=== PATIENT | female | born 1945 ===

== ENCOUNTER 2017-07-03 13:43 | Inpatient (IN) ==
[2017-07-03] MEDS ORDERED: PIPERACILLIN/TAZOBACTAM 3,375 MG in SODIUM CHLORIDE 0.9% 100 ML IV SCH (14:30)
[2017-07-03] MEDS ORDERED: SODIUM CHLORIDE 0.9% 2,600 ML IV ONE (14:30)
[2017-07-03] MEDS ORDERED: PIPERACILLIN/TAZOBACTAM 3,375 MG VIAL IV ONE (14:39)
[2017-07-03] MEDS ORDERED: NOREPINEPHRINE 4 MG/4 ML VIAL IV ONE ×2 (14:42→15:56)
[2017-07-03 14:58] LABS: Albumin 2.4 G/DL (3.4-5.0); Bilirubin,Total 0.4 MG/DL (0.2-1.0); Calcium 7.9 MG/DL (8.5-10.1); Total Protein 6.1 G/DL (6.4-8.3)
[2017-07-03] MEDS ORDERED: INSULIN REGULAR DRIP 100 ML IV SCH (15:00)
[2017-07-03 15:03] LABS: Basophils # 0.1 10*3/uL (0.0-0.2); Basophils % 0.2 % (0.0-0.8); Hemoglobin 13.8 GM/DL (12.0-16.0); Immature Granulocytes % 1.5 %; Immature Granulocytes Absolute 0.53 #; Lymphocytes # 1.1 10*3/uL (1.4-4.0); Lymphocytes % 3.1 % (21.3-54.2); Mean Corpuscular HGB Conc 29.8 GM/DL (32-36); Mean Corpuscular Hemoglobin 30 PG (27-34); Mean Corpuscular Volume 99.6 FL (87-102); Mean Platelet Volume 14.4 FL (9.6-12.0); Monocytes # 0.7 10*3/uL (0.11-0.8); NRBC # 0.09 10*3/uL; Neutrophils % 93.2 % (38.7-73.9); Platelet Count 204 T/CUMM (130-400); Red Blood Count 4.65 MC/CUMM (3.8-5.5); Red Cell Distribution Width 17.9 % (9.3-17.3); White Blood Count 34.4 T/CUMM (4-12)
[2017-07-03] MEDS ORDERED: INSULIN REGULAR 100 UNIT/ML ONE (15:04)
[2017-07-03 15:09] LABS: Hematocrit 46.3 VOL% (35.7-47.0)
[2017-07-03 15:11] LABS: Burr Cells Slight; Lymphocytes 3 % (20-55); Platelet Estimate Adequate; Poikilocytosis Slight; Segmented Neutrophils 95 % (50-85); Total Cells Counted 100
[2017-07-03 15:23] LABS: ABG Base Excess -9.9 MMOL/L (-2.5-2.5); ABG HCO3 16.7 MMOL/L (20-26); ABG Oxygen Saturation 99.3 % (95-100); ABG PCO2 41.9 MM HG (35-48); ABG PH 7.229 (7.35-7.45); ABG TCO2 15.8 MMOL/L (23-27); Allen Test Positive; Pt O2 Delivery Device Ventilator
[2017-07-03] MEDS ORDERED: DEXTROSE 50% 25 GM/50 ML VIAL IV PRN (16:00)
[2017-07-03] MEDS ORDERED: SODIUM CHLORIDE 0.9% 1,000 ML IV SCH (16:00)
[2017-07-03] MEDS ORDERED: SODIUM PHOSPHATE INJ 21.5 MMOL in SODIUM CHLORIDE 0.9% 250 ML IV PRN (16:00)
[2017-07-03] MEDS ORDERED: MAGNESIUM SULF RIDER 2 GM in PREMIX 1 EACH IV PRN (16:00)
[2017-07-03] MEDS ORDERED: SODIUM BICARB INJ 100 MEQ in STERILE WATER INJ 400 ML IV PRN (16:00)
[2017-07-03] MEDS ORDERED: ONDANSETRON 4 MG/2 ML VIAL IV PRN (16:00)
[2017-07-03] MEDS ORDERED: MAGNESIUM SULF RIDER 4 GM in PREMIX 1 EACH IV PRN (16:00)
[2017-07-03] MEDS ORDERED: INSULIN REGULAR 100 UNIT/ML SUBCUT ONE (16:04)
[2017-07-03 16:35] LABS: ABG Base Excess -11.2 MMOL/L (-2.5-2.5); ABG HCO3 15.7 MMOL/L (20-26); ABG Oxygen Saturation 95.1 % (95-100); ABG PCO2 33.5 MM HG (35-48); ABG PH 7.261 (7.35-7.45); ABG PO2 91.8 MM HG (80-95); ABG TCO2 13.4 MMOL/L (23-27)
[2017-07-03] MEDS: NOREPINEPHRINE 8 MG in SODIUM CHLORIDE 0.9% 242 ML IV SCH ×2 (16:42→20:13)
[2017-07-03 16:45] LABS: Calcium 7.1 MG/DL (8.5-10.1); Osmolality,Calculated 393.3 MOS/KG (273-304); Potassium 4.4 MMOL/L (3.5-5.1)
[2017-07-03] MEDS ORDERED: INSULIN REGULAR 100 UNIT/ML IV ONE (17:06)
[2017-07-03] MEDS ORDERED: HEPARIN/NACL 0.9% 2 UNITS/ML 500 ML IV ONE (17:14)
[2017-07-03] MEDS: ENOXAPARIN 30 MG/0.3 ML SYRINGE SUBCUT SCH (17:43)
[2017-07-03] MEDS: PANTOPRAZOLE 40 MG VIAL IV SCH (17:43)
[2017-07-03] MEDS: INSULIN REGULAR DRIP 100 ML IV SCH (17:44)
[2017-07-03] MEDS: HEPARIN/NACL 0.9% 2 UNITS/ML 500 ML IV SCH (17:48)
[2017-07-03] MEDS: SODIUM CHLOR 0.45% KCL 20 MEQ 20 MEQ/1,000 ML BAG IV SCH ×2 (18:00→22:14)
[2017-07-03 18:03] LABS: Apearance,Urine CLOUDY (Clear); Bacteria,Urine Many /HPF (Few); Bilirubin,Urine Negative (Negative); Blood, Urine Moderate mg/dL (Negative); Glucose,Urine (UA) >=500 mg/dL (Negative); Hyaline Casts,Urine 132 /LPF (0-3); Ketones,Urine Negative (Negative); Mucus,Urine Moderate /LPF (Occasional); Nitrite,Urine Negative (Negative); Protein,Urine 30 MG/DL; RBC,Urine 8 /HPF (0-4); Squamous Epithelial Cell,Urine Occasional /HPF (0-10); Urine Color Amber (Yellow); Urine Specific Gravity 1.017 (1.001-1.035); Urine Urobilinogen < 2.0 EU/DL (0.2-1.0); WBC,Urine 374 /HPF (0-6)
[2017-07-03] MEDS ORDERED: SODIUM CHLORIDE 0.45% 1,000 ML IV SCH (20:00)
[2017-07-03 20:11] LABS: Calcium 6.7 MG/DL (8.5-10.1); Osmolality,Calculated 382.3 MOS/KG (273-304); Potassium 3.8 MMOL/L (3.5-5.1)
[2017-07-03 22:19] LABS: Albumin 2.1 G/DL (3.4-5.0); Calcium 6.7 MG/DL (8.5-10.1); Osmolality,Calculated 375.2 MOS/KG (273-304); Phosphorous 4.3 MG/DL (2.5-4.9); Potassium 3.8 MMOL/L (3.5-5.1)
[2017-07-03] MEDS ORDERED: VASOPRESSIN 100 UNITS in SODIUM CHLORIDE 0.9% 95 ML IV SCH (23:45)
[2017-07-03] MEDS: NOREPINEPHRINE 16 MG in SODIUM CHLORIDE 0.9% 234 ML IV SCH (23:54)
[2017-07-04 00:53] LABS: Calcium 6.7 MG/DL (8.5-10.1); Osmolality,Calculated 364.2 MOS/KG (273-304); Potassium 4.3 MMOL/L (3.5-5.1)
[2017-07-04] MEDS: SODIUM CHLOR 0.45% KCL 20 MEQ 20 MEQ/1,000 ML BAG IV SCH (02:15)
[2017-07-04] MEDS: INSULIN REGULAR DRIP 100 ML IV SCH ×2 (02:39→19:06)
[2017-07-04] MEDS: PIPERACILLIN/TAZOBACTAM 3,375 MG in SODIUM CHLORIDE 0.9% 100 ML IV SCH ×2 (04:21→16:18)
[2017-07-04 06:08] LABS: ABG Base Excess -12.9 MMOL/L (-2.5-2.5); ABG HCO3 14.7 MMOL/L (20-26); ABG Oxygen Saturation 96.9 % (95-100); ABG PCO2 22.5 MM HG (35-48); ABG PH 7.322 (7.35-7.45); ABG TCO2 10.1 MMOL/L (23-27)
[2017-07-04 06:12] LABS: Basophils # 0.1 10*3/uL (0.0-0.2); Basophils % 0.2 % (0.0-0.8); Hematocrit 45.4 VOL% (35.7-47.0); Hemoglobin 14.1 GM/DL (12.0-16.0); Immature Granulocytes Absolute 0.27 #; Lymphocytes # 2.4 10*3/uL (1.4-4.0); Lymphocytes % 9.4 % (21.3-54.2); Mean Corpuscular HGB Conc 31.1 GM/DL (32-36); Mean Corpuscular Hemoglobin 30 PG (27-34); Mean Corpuscular Volume 95.6 FL (87-102); Mean Platelet Volume 13.8 FL (9.6-12.0); Monocytes # 1.1 10*3/uL (0.11-0.8); Monocytes % 4.3 % (1.7-12.7); NRBC # 0.24 10*3/uL; Neutrophils % 85.1 % (38.7-73.9); Platelet Count 93 T/CUMM (130-400); Red Blood Count 4.75 MC/CUMM (3.8-5.5); Red Cell Distribution Width 16.4 % (9.3-17.3); White Blood Count 25.9 T/CUMM (4-12)
[2017-07-04 06:40] LABS: Calcium 6.5 MG/DL (8.5-10.1); Magnesium 2.4 MG/DL (1.8-2.4); Osmolality,Calculated 349.2 MOS/KG (273-304); Phosphorous 4.2 MG/DL (2.5-4.9); Potassium 3.6 MMOL/L (3.5-5.1)
[2017-07-04 06:42] LABS: Band Neutrophils 7 % (0-10); Lymphocytes 13 % (20-55); Macrocytosis 1+; Nucleated Red Blood Cells 1 (0-5); Platelet Estimate Decreased; Polychromasia Slight; Segmented Neutrophils 79 % (50-85); Total Cells Counted 100
[2017-07-04] MEDS ORDERED: VASOPRESSIN 100 UNITS in SODIUM CHLORIDE 0.9% 95 ML IV SCH (07:15)
[2017-07-04] MEDS: NOREPINEPHRINE 16 MG in SODIUM CHLORIDE 0.9% 234 ML IV SCH ×3 (08:00→22:47)
[2017-07-04 08:10] LABS: Calcium 6.5 MG/DL (8.5-10.1); Potassium 3.6 MMOL/L (3.5-5.1)
[2017-07-04] MEDS: VASOPRESSIN 100 UNITS in SODIUM CHLORIDE 0.9% 95 ML IV SCH ×5 (10:00→22:46)
[2017-07-04] MEDS: PANTOPRAZOLE 40 MG VIAL IV SCH (10:20)
[2017-07-04] MEDS: STERILE WATER IV SCH ×3 (11:12→19:07)
[2017-07-04] MEDS: POTASSIUM CHLORIDE IV SCH ×3 (11:12→19:07)
[2017-07-04] MEDS: SODIUM ACETATE IV SCH ×3 (11:12→19:07)
[2017-07-04 12:03] LABS: Calcium 6.5 MG/DL (8.5-10.1); Osmolality,Calculated 340.3 MOS/KG (273-304); Potassium 4.5 MMOL/L (3.5-5.1)
[2017-07-04] MEDS ORDERED: MORPHINE 2 MG/1 ML SYRINGE IV ONE (15:33)
[2017-07-04] MEDS: ENOXAPARIN 30 MG/0.3 ML SYRINGE SUBCUT SCH (16:00)
[2017-07-04 17:41] LABS: Basophils % 0.2 % (0.0-0.8); Hematocrit 38.5 VOL% (35.7-47.0); Hemoglobin 12.2 GM/DL (12.0-16.0); Immature Granulocytes % 1.9 %; Immature Granulocytes Absolute 0.46 #; Lymphocytes # 1.3 10*3/uL (1.4-4.0); Lymphocytes % 5.6 % (21.3-54.2); Mean Corpuscular HGB Conc 31.7 GM/DL (32-36); Mean Corpuscular Hemoglobin 30 PG (27-34); Mean Corpuscular Volume 93.7 FL (87-102); Mean Platelet Volume 14.2 FL (9.6-12.0); Monocytes # 0.8 10*3/uL (0.11-0.8); Monocytes % 3.4 % (1.7-12.7); NRBC # 0.17 10*3/uL; Neutrophils # 21.3 10*3/uL (1.4-7.4); Neutrophils % 88.9 % (38.7-73.9); Red Blood Count 4.11 MC/CUMM (3.8-5.5); Red Cell Distribution Width 16.4 % (9.3-17.3); White Blood Count 23.9 T/CUMM (4-12)
[2017-07-04 17:43] LABS: Platelet Count 54 T/CUMM (130-400)
[2017-07-04 18:00] LABS: Calcium 6.4 MG/DL (8.5-10.1); Magnesium 2.3 MG/DL (1.8-2.4); Osmolality,Calculated 339.4 MOS/KG (273-304); Potassium 3.9 MMOL/L (3.5-5.1)
[2017-07-04 18:20] LABS: Band Neutrophils 10 % (0-10); Lymphocytes 8 % (20-55); Nucleated Red Blood Cells 3 (0-5); Segmented Neutrophils 79 % (50-85); Total Cells Counted 100
[2017-07-04 18:21] LABS: Burr Cells Few; Platelet Estimate Decreased; Poikilocytosis Slight
[2017-07-04] MEDS: HEPARIN/NACL 0.9% 2 UNITS/ML 500 ML IV SCH (19:05)
[2017-07-05] MEDS: SODIUM ACETATE IV SCH ×3 (00:38→07:43)
[2017-07-05] MEDS: STERILE WATER IV SCH ×3 (00:38→07:43)
[2017-07-05] MEDS: POTASSIUM CHLORIDE IV SCH ×3 (00:38→07:43)
[2017-07-05] MEDS: NOREPINEPHRINE 16 MG in SODIUM CHLORIDE 0.9% 234 ML IV SCH ×3 (01:44→14:11)
[2017-07-05] MEDS: VASOPRESSIN 100 UNITS in SODIUM CHLORIDE 0.9% 95 ML IV SCH ×7 (02:15→20:32)
[2017-07-05 04:44] LABS: ABG Base Excess 3.6 MMOL/L (-2.5-2.5); ABG HCO3 27.6 MMOL/L (20-26); ABG Oxygen Saturation 98.6 % (95-100); ABG PCO2 23.7 MM HG (35-48); ABG PO2 95.1 MM HG (80-95); ABG TCO2 21.4 MMOL/L (23-27)
[2017-07-05 04:59] LABS: ABG PH 7.613 (7.35-7.45)
[2017-07-05] MEDS: PIPERACILLIN/TAZOBACTAM 3,375 MG in SODIUM CHLORIDE 0.9% 100 ML IV SCH ×3 (05:32→22:21)
[2017-07-05 05:52] LABS: Basophils % 0.1 % (0.0-0.8); Hematocrit 33.8 VOL% (35.7-47.0); Hemoglobin 11.2 GM/DL (12.0-16.0); Immature Granulocytes % 0.8 %; Immature Granulocytes Absolute 0.16 #; Lymphocytes # 1.6 10*3/uL (1.4-4.0); Lymphocytes % 8.1 % (21.3-54.2); Mean Corpuscular HGB Conc 33.1 GM/DL (32-36); Mean Corpuscular Hemoglobin 30 PG (27-34); Mean Corpuscular Volume 89.4 FL (87-102); Monocytes % 4.8 % (1.7-12.7); NRBC # 0.08 10*3/uL; Neutrophils # 17.1 10*3/uL (1.4-7.4); Neutrophils % 86.2 % (38.7-73.9); Platelet Count 46 T/CUMM (130-400); Red Blood Count 3.78 MC/CUMM (3.8-5.5); Red Cell Distribution Width 16.2 % (9.3-17.3); White Blood Count 19.8 T/CUMM (4-12)
[2017-07-05 06:14] LABS: Band Neutrophils 5 % (0-10); Giant Platelets Few; Hypochromasia 1+; Lymphocytes 9 % (20-55); Ovalocytes Slight; Platelet Estimate Decreased; Segmented Neutrophils 82 % (50-85); Total Cells Counted 100
[2017-07-05 06:33] LABS: Albumin 1.3 G/DL (3.4-5.0); Bilirubin,Total 0.8 MG/DL (0.2-1.0); Osmolality,Calculated 331.7 MOS/KG (273-304); Potassium 3.3 MMOL/L (3.5-5.1); Total Protein 4.3 G/DL (6.4-8.3)
[2017-07-05 07:38] LABS: ABG Base Excess 0.6 MMOL/L (-2.5-2.5); ABG HCO3 24.9 MMOL/L (20-26); ABG Oxygen Saturation 97.5 % (95-100); ABG PCO2 24.6 MM HG (35-48); ABG PH 7.554 (7.35-7.45); ABG PO2 85.1 MM HG (80-95); ABG TCO2 19.4 MMOL/L (23-27)
[2017-07-05] MEDS: POTASSIUM CHLORIDE RIDER 10 MEQ in PREMIX 1 EACH IV PRN (07:43)
[2017-07-05] MEDS: DEXTROSE 50% 25 GM/50 ML VIAL IV PRN ×2 (08:17→08:45)
[2017-07-05] MEDS: ALBUMIN 25% 25 GM in PREMIX 1 EACH IV SCH ×2 (08:49→16:36)
[2017-07-05] MEDS: PANTOPRAZOLE 40 MG VIAL IV SCH (08:52)
[2017-07-05] MEDS: DEXTROSE 5% NACL 0.22% 1,000 ML IV SCH ×2 (09:47→15:49)
[2017-07-05] MEDS ORDERED: DEXTROSE 50% 25 GM/50 ML VIAL IV PRN (11:05)
[2017-07-05] MEDS ORDERED: GLUCAGON 1 MG VIAL IM PRN (11:05)
[2017-07-05] MEDS ORDERED: INSULIN LISPRO 100 UNIT/ML SUBCUT ONE (11:35)
[2017-07-05] MEDS: INSULIN LISPRO 100 UNIT/ML SUBCUT SCH ×3 (12:16→21:30)
[2017-07-05] MEDS: SODIUM CHLOR 0.45% KCL 20 MEQ 20 MEQ/1,000 ML BAG IV SCH (12:54)
[2017-07-05] MEDS ORDERED: INSULIN LISPRO 100 UNIT/ML SUBCUT SCH (14:00)
[2017-07-05 14:21] LABS: Calcium 6.2 MG/DL (8.5-10.1); Osmolality,Calculated 339.3 MOS/KG (273-304); Potassium 2.6 MMOL/L (3.5-5.1)
[2017-07-05] MEDS: SODIUM CHLORIDE 23.4% CONC INJ 38.5 MEQ in STERILE WATER INJ 1,000 ML IV SCH (15:41)
[2017-07-05] MEDS: ENOXAPARIN 30 MG/0.3 ML SYRINGE SUBCUT SCH (15:59)
[2017-07-05] MEDS: HEPARIN/NACL 0.9% 2 UNITS/ML 500 ML IV SCH (17:52)
[2017-07-06] MEDS: SODIUM CHLORIDE 23.4% CONC INJ 38.5 MEQ in STERILE WATER INJ 1,000 ML IV SCH ×3 (00:52→13:25)
[2017-07-06] MEDS: DEXTROSE 5% NACL 0.22% 1,000 ML IV SCH ×4 (00:53→20:27)
[2017-07-06] MEDS: VASOPRESSIN 100 UNITS in SODIUM CHLORIDE 0.9% 95 ML IV SCH ×3 (00:54→08:09)
[2017-07-06] MEDS: INSULIN LISPRO 100 UNIT/ML SUBCUT SCH ×6 (01:16→20:04)
[2017-07-06] MEDS: ALBUMIN 25% 25 GM in PREMIX 1 EACH IV SCH ×3 (01:16→16:38)
[2017-07-06] MEDS: NOREPINEPHRINE 16 MG in SODIUM CHLORIDE 0.9% 234 ML IV SCH ×2 (04:23→05:02)
[2017-07-06] MEDS: PIPERACILLIN/TAZOBACTAM 3,375 MG in SODIUM CHLORIDE 0.9% 100 ML IV SCH (05:54)
[2017-07-06 06:10] LABS: ABG Base Excess 4.8 MMOL/L (-2.5-2.5); ABG HCO3 27.5 MMOL/L (20-26); ABG Oxygen Saturation 97.6 % (95-100); ABG PCO2 33.1 MM HG (35-48); ABG PH 7.538 (7.35-7.45); ABG PO2 101.7 MM HG (80-95); ABG TCO2 28.6 MMOL/L (23-27)
[2017-07-06] MEDS: PANTOPRAZOLE 40 MG VIAL IV SCH (08:08)
[2017-07-06 09:14] LABS: Basophils % 0.1 % (0.0-0.8); Hematocrit 24.7 VOL% (35.7-47.0); Immature Granulocytes % 0.7 %; Lymphocytes # 0.8 10*3/uL (1.4-4.0); Lymphocytes % 5.7 % (21.3-54.2); Mean Corpuscular HGB Conc 32.4 GM/DL (32-36); Mean Corpuscular Hemoglobin 30 PG (27-34); Mean Corpuscular Volume 92.9 FL (87-102); Mean Platelet Volume 14.3 FL (9.6-12.0); Monocytes # 0.3 10*3/uL (0.11-0.8); Monocytes % 2.3 % (1.7-12.7); NRBC # 0.02 10*3/uL; Neutrophils # 12.5 10*3/uL (1.4-7.4); Neutrophils % 91.2 % (38.7-73.9); Red Blood Count 2.66 MC/CUMM (3.8-5.5); Red Cell Distribution Width 16.3 % (9.3-17.3); White Blood Count 13.8 T/CUMM (4-12)
[2017-07-06 09:19] LABS: Platelet Count 19 T/CUMM (130-400)
[2017-07-06 09:41] LABS: Albumin 2.3 G/DL (3.4-5.0); Calcium 6.2 MG/DL (8.5-10.1); Osmolality,Calculated 298.3 MOS/KG (273-304); Phosphorous 1.4 MG/DL (2.5-4.9)
[2017-07-06 09:46] LABS: Band Neutrophils 2 % (0-10); Lymphocytes 8 % (20-55); Platelet Estimate Decreased; Segmented Neutrophils 87 % (50-85); Total Cells Counted 100
[2017-07-06 09:47] LABS: Hypochromasia 1+; Ovalocytes Slight
[2017-07-06] MEDS: POTASSIUM CHLORIDE RIDER 10 MEQ in PREMIX 1 EACH IV PRN ×2 (09:59→23:47)
[2017-07-06] MEDS: MEROPENEM 500 MG in SODIUM CHLORIDE 0.9% 50 ML IV SCH (13:24)
[2017-07-06] MEDS: FAMOTIDINE 20 MG/2 ML VIAL IV SCH (14:48)
[2017-07-06] MEDS: POTASSIUM PHOS/SOD PHOS POWDER 250 MG PACK PO SCH ×2 (14:49→21:09)
[2017-07-06] MEDS: POTASSIUM CHLORIDE RIDER 100 ML IV PRN (16:38)
[2017-07-06] MEDS ORDERED: POTASSIUM CHLORIDE 20 MEQ/15 ML UDCUP PER TUBE ONE (17:00)
[2017-07-07] MEDS: INSULIN LISPRO 100 UNIT/ML SUBCUT SCH ×6 (00:22→19:57)
[2017-07-07] MEDS: POTASSIUM CHLORIDE RIDER 20 MEQ in PREMIX 1 EACH IV PRN (00:24)
[2017-07-07] MEDS: POTASSIUM CHLORIDE RIDER 100 ML IV PRN ×2 (01:24→05:21)
[2017-07-07] MEDS: NOREPINEPHRINE 16 MG in SODIUM CHLORIDE 0.9% 234 ML IV SCH (01:25)
[2017-07-07] MEDS: SODIUM CHLORIDE 23.4% CONC INJ 38.5 MEQ in STERILE WATER INJ 1,000 ML IV SCH ×3 (01:32→13:59)
[2017-07-07] MEDS: ALBUMIN 25% 25 GM in PREMIX 1 EACH IV SCH ×3 (01:34→16:23)
[2017-07-07] MEDS: FAMOTIDINE 20 MG/2 ML VIAL IV SCH ×2 (01:59→15:24)
[2017-07-07] MEDS: MEROPENEM 500 MG in SODIUM CHLORIDE 0.9% 50 ML IV SCH (02:03)
[2017-07-07 04:18] LABS: ABG Base Excess -0.9 MMOL/L (-2.5-2.5); ABG HCO3 21.4 MMOL/L (20-26); ABG Oxygen Saturation 98.3 % (95-100); ABG PCO2 26.2 MM HG (35-48); ABG PO2 116.5 MM HG (80-95); ABG TCO2 22.2 MMOL/L (23-27)
[2017-07-07 04:51] LABS: Basophils % 0.1 % (0.0-0.8); Eosinophils # 0.1 10*3/uL (0.0-0.87); Eosinophils % 0.6 % (0.00-10.9); Immature Granulocytes % 1.1 %; Immature Granulocytes Absolute 0.11 #; Lymphocytes # 0.6 10*3/uL (1.4-4.0); Lymphocytes % 6.6 % (21.3-54.2); Mean Corpuscular Hemoglobin 30 PG (27-34); Mean Corpuscular Volume 91.2 FL (87-102); Mean Platelet Volume 15.1 FL (9.6-12.0); Monocytes # 0.2 10*3/uL (0.11-0.8); Monocytes % 2.5 % (1.7-12.7); Neutrophils # 8.6 10*3/uL (1.4-7.4); Neutrophils % 89.1 % (38.7-73.9); Red Blood Count 2.26 MC/CUMM (3.8-5.5); Red Cell Distribution Width 15.8 % (9.3-17.3); White Blood Count 9.7 T/CUMM (4-12)
[2017-07-07 04:52] LABS: Albumin 2.4 G/DL (3.4-5.0); Calcium 5.9 MG/DL (8.5-10.1); Osmolality,Calculated 282.4 MOS/KG (273-304); Phosphorous 0.6 MG/DL (2.5-4.9); Potassium 3.6 MMOL/L (3.5-5.1)
[2017-07-07 05:00] LABS: Hematocrit 20.6 VOL% (35.7-47.0); Hemoglobin 6.8 GM/DL (12.0-16.0); Platelet Count 12 T/CUMM (130-400)
[2017-07-07 05:15] LABS: Platelet Estimate Decreased
[2017-07-07] MEDS ORDERED: SODIUM CHLORIDE 0.9% 250 ML IV PRN (08:17)
[2017-07-07] MEDS: POTASSIUM PHOS/SOD PHOS POWDER 250 MG PACK PO SCH ×3 (09:32→21:13)
[2017-07-07] MEDS: MEROPENEM 1,000 MG in SODIUM CHLORIDE 0.9% 50 ML IV SCH ×2 (13:58→21:19)
[2017-07-08] MEDS: INSULIN LISPRO 100 UNIT/ML SUBCUT SCH ×6 (00:06→20:14)
[2017-07-08] MEDS: ALBUMIN 25% 25 GM in PREMIX 1 EACH IV SCH ×3 (01:31→17:21)
[2017-07-08] MEDS: FAMOTIDINE 20 MG/2 ML VIAL IV SCH ×2 (01:37→14:23)
[2017-07-08 04:58] LABS: ABG Base Excess -1.9 MMOL/L (-2.5-2.5); ABG HCO3 22.9 MMOL/L (20-26); ABG Oxygen Saturation 98.7 % (95-100); ABG PCO2 25.8 MM HG (35-48); ABG PH 7.501 (7.35-7.45); ABG TCO2 18.2 MMOL/L (23-27); Allen Test Positive; Pt O2 Delivery Device Ventilator
[2017-07-08 05:10] LABS: Basophils % 0.1 % (0.0-0.8); Eosinophils % 0.3 % (0.00-10.9); Hematocrit 29.8 VOL% (35.7-47.0); Hemoglobin 10.3 GM/DL (12.0-16.0); Immature Granulocytes % 2.1 %; Immature Granulocytes Absolute 0.18 #; Lymphocytes # 0.5 10*3/uL (1.4-4.0); Lymphocytes % 5.6 % (21.3-54.2); Mean Corpuscular HGB Conc 34.6 GM/DL (32-36); Mean Corpuscular Hemoglobin 30 PG (27-34); Mean Corpuscular Volume 86.9 FL (87-102); Monocytes # 0.2 10*3/uL (0.11-0.8); Monocytes % 2.2 % (1.7-12.7); NRBC # 0.03 10*3/uL; Neutrophils # 7.7 10*3/uL (1.4-7.4); Neutrophils % 89.7 % (38.7-73.9); Red Blood Count 3.43 MC/CUMM (3.8-5.5); Red Cell Distribution Width 15.4 % (9.3-17.3); White Blood Count 8.6 T/CUMM (4-12)
[2017-07-08] MEDS: MEROPENEM 1,000 MG in SODIUM CHLORIDE 0.9% 50 ML IV SCH ×3 (05:20→20:46)
[2017-07-08 05:21] LABS: INR 1.6; PT Patient Result 16.4 SECS
[2017-07-08 05:30] LABS: Partial Thromboplastin Time 47.4 SECS (0-40)
[2017-07-08 05:38] LABS: Albumin 2.9 G/DL (3.4-5.0); Calcium 6.5 MG/DL (8.5-10.1); Potassium 3.4 MMOL/L (3.5-5.1); Prealbumin 6.8 MG/DL (20-40); Total Protein 4.5 G/DL (6.4-8.3)
[2017-07-08] MEDS: POTASSIUM CHLORIDE RIDER 10 MEQ in PREMIX 1 EACH IV PRN (05:44)
[2017-07-08 05:54] LABS: Albumin 2.8 G/DL (3.4-5.0); Calcium 6.5 MG/DL (8.5-10.1); Osmolality,Calculated 287.3 MOS/KG (273-304); Phosphorous 1.1 MG/DL (2.5-4.9); Potassium 3.4 MMOL/L (3.5-5.1)
[2017-07-08 05:58] LABS: Platelet Count 15 T/CUMM (130-400)
[2017-07-08] MEDS: POTASSIUM CHLORIDE RIDER 20 MEQ in PREMIX 1 EACH IV PRN (06:20)
[2017-07-08] MEDS: POTASSIUM CHLORIDE RIDER 100 ML IV PRN (06:20)
[2017-07-08 06:55] LABS: Band Neutrophils 2 % (0-10); Hypochromasia 1+; Lymphocytes 6 % (20-55); Platelet Estimate Decreased; Segmented Neutrophils 89 % (50-85); Total Cells Counted 100
[2017-07-08 09:30] LABS: 25 Hydroxy Vitamin D Total 6.3 NG/ML
[2017-07-08 09:34] LABS: Parathyroid Hormone Intact 440.5 PG/ML (14-72)
[2017-07-08] MEDS: CALCITRIOL 0.25 MCG CAPSULE PO SCH (10:53)
[2017-07-08] MEDS: POTASSIUM PHOS/SOD PHOS POWDER 250 MG PACK PO SCH ×3 (10:54→20:45)
[2017-07-09] MEDS: INSULIN LISPRO 100 UNIT/ML SUBCUT SCH ×6 (00:29→20:16)
[2017-07-09] MEDS: ALBUMIN 25% 25 GM in PREMIX 1 EACH IV SCH ×3 (01:34→17:14)
[2017-07-09] MEDS: FAMOTIDINE 20 MG/2 ML VIAL IV SCH ×2 (01:44→14:59)
[2017-07-09 04:10] LABS: ABG Base Excess -1.1 MMOL/L (-2.5-2.5); ABG HCO3 23.5 MMOL/L (20-26); ABG Oxygen Saturation 99.3 % (95-100); ABG PCO2 28.4 MM HG (35-48); ABG PH 7.487 (7.35-7.45); ABG TCO2 19.7 MMOL/L (23-27); Allen Test Positive; Pt O2 Delivery Device Ventilator
[2017-07-09 04:26] LABS: Basophils % 0.2 % (0.0-0.8); Eosinophils # 0.1 10*3/uL (0.0-0.87); Eosinophils % 0.9 % (0.00-10.9); Hematocrit 26.5 VOL% (35.7-47.0); Hemoglobin 9.1 GM/DL (12.0-16.0); Immature Granulocytes % 1.4 %; Immature Granulocytes Absolute 0.09 #; Lymphocytes # 0.5 10*3/uL (1.4-4.0); Lymphocytes % 8.1 % (21.3-54.2); Mean Corpuscular HGB Conc 34.3 GM/DL (32-36); Mean Corpuscular Hemoglobin 30 PG (27-34); Mean Corpuscular Volume 86.9 FL (87-102); Monocytes # 0.2 10*3/uL (0.11-0.8); Monocytes % 3.5 % (1.7-12.7); NRBC # 0.02 10*3/uL; Neutrophils # 5.6 10*3/uL (1.4-7.4); Neutrophils % 85.9 % (38.7-73.9); Red Blood Count 3.05 MC/CUMM (3.8-5.5); Red Cell Distribution Width 15.7 % (9.3-17.3); White Blood Count 6.6 T/CUMM (4-12)
[2017-07-09 04:30] LABS: Platelet Count 22 T/CUMM (130-400)
[2017-07-09 04:51] LABS: Calcium 6.7 MG/DL (8.5-10.1); Osmolality,Calculated 294.8 MOS/KG (273-304); Phosphorous 1.5 MG/DL (2.5-4.9); Potassium 3.5 MMOL/L (3.5-5.1)
[2017-07-09 05:21] LABS: Band Neutrophils 1 % (0-10); Eosinophils 1 % (0-10); Lymphocytes 5 % (20-55); Segmented Neutrophils 90 % (50-85); Total Cells Counted 100
[2017-07-09 05:22] LABS: Hypochromasia 1+; Ovalocytes Slight; Platelet Estimate Decreased
[2017-07-09] MEDS: MEROPENEM 1,000 MG in SODIUM CHLORIDE 0.9% 50 ML IV SCH ×3 (05:41→21:06)
[2017-07-09] MEDS: POTASSIUM CHLORIDE RIDER 20 MEQ in PREMIX 1 EACH IV PRN (06:25)
[2017-07-09] MEDS: POTASSIUM CHLORIDE RIDER 10 MEQ in PREMIX 1 EACH IV PRN (06:53)
[2017-07-09] MEDS: CALCITRIOL 0.25 MCG CAPSULE PO SCH (08:50)
[2017-07-09] MEDS: POTASSIUM PHOS/SOD PHOS POWDER 250 MG PACK PO SCH ×3 (08:51→21:06)
[2017-07-09] MEDS ORDERED: CALCIUM GLUCONATE 2,000 MG in SODIUM CHLORIDE 0.9% 100 ML IV PRN (09:49)
[2017-07-09 20:01] LABS: HIT Interpretation Negative (Negative)
[2017-07-10] MEDS: INSULIN LISPRO 100 UNIT/ML SUBCUT SCH ×6 (00:22→20:50)
[2017-07-10] MEDS: ALBUMIN 25% 25 GM in PREMIX 1 EACH IV SCH ×3 (00:44→17:07)
[2017-07-10] MEDS: FAMOTIDINE 20 MG/2 ML VIAL IV SCH ×2 (02:25→14:01)
[2017-07-10 03:36] LABS: Allen Test Positive; Pt O2 Delivery Device Ventilator
[2017-07-10 03:37] LABS: ABG Base Excess -0.5 MMOL/L (-2.5-2.5); ABG HCO3 21.7 MMOL/L (20-26); ABG Oxygen Saturation 97.6 % (95-100); ABG PH 7.523 (7.35-7.45); ABG PO2 100.6 MM HG (80-95); ABG TCO2 22.5 MMOL/L (23-27)
[2017-07-10 04:04] LABS: Eosinophils # 0.1 10*3/uL (0.0-0.87); Eosinophils % 1.3 % (0.00-10.9); Hematocrit 25.2 VOL% (35.7-47.0); Hemoglobin 8.5 GM/DL (12.0-16.0); Immature Granulocytes % 2.8 %; Immature Granulocytes Absolute 0.17 #; Lymphocytes # 0.5 10*3/uL (1.4-4.0); Lymphocytes % 8.6 % (21.3-54.2); Mean Corpuscular HGB Conc 33.7 GM/DL (32-36); Mean Corpuscular Hemoglobin 30 PG (27-34); Mean Corpuscular Volume 87.8 FL (87-102); Monocytes # 0.2 10*3/uL (0.11-0.8); Monocytes % 3.6 % (1.7-12.7); NRBC # 0.03 10*3/uL; Neutrophils # 5.2 10*3/uL (1.4-7.4); Neutrophils % 83.7 % (38.7-73.9); Red Blood Count 2.87 MC/CUMM (3.8-5.5); Red Cell Distribution Width 15.9 % (9.3-17.3); White Blood Count 6.2 T/CUMM (4-12)
[2017-07-10 04:15] LABS: Platelet Count 41 T/CUMM (130-400)
[2017-07-10] MEDS: MEROPENEM 1,000 MG in SODIUM CHLORIDE 0.9% 50 ML IV SCH ×3 (05:13→20:48)
[2017-07-10 05:14] LABS: Calcium 7.2 MG/DL (8.5-10.1); Osmolality,Calculated 299.6 MOS/KG (273-304); Potassium 3.9 MMOL/L (3.5-5.1)
[2017-07-10] MEDS: POTASSIUM CHLORIDE RIDER 20 MEQ in PREMIX 1 EACH IV PRN (05:47)
[2017-07-10 06:00] LABS: Band Neutrophils 2 % (0-10); Hypochromasia 2+; Lymphocytes 6 % (20-55); Nucleated Red Blood Cells 2 (0-5); Platelet Estimate Decreased; Segmented Neutrophils 90 % (50-85); Total Cells Counted 100
[2017-07-10] MEDS ORDERED: PROPOFOL 1,000 MG/100 ML BOTTLE IV ONE (09:25)
[2017-07-10] MEDS: PROPOFOL 1,000 MG/100 ML BOTTLE IV SCH ×2 (10:07→17:12)
[2017-07-10] MEDS: CALCITRIOL 0.25 MCG CAPSULE PO SCH (10:39)
[2017-07-10] MEDS: POTASSIUM PHOS/SOD PHOS POWDER 250 MG PACK PO SCH ×3 (10:39→20:48)
[2017-07-10] MEDS: SALIVA SUBSTITUTE SPRAY 60 ML CAN SWISH/SWAL PRN ×2 (14:06→16:14)
[2017-07-11] MEDS: INSULIN LISPRO 100 UNIT/ML SUBCUT SCH ×6 (00:16→21:58)
[2017-07-11] MEDS: FAMOTIDINE 20 MG/2 ML VIAL IV SCH ×2 (01:17→13:02)
[2017-07-11] MEDS: ALBUMIN 25% 25 GM in PREMIX 1 EACH IV SCH ×3 (01:17→16:29)
[2017-07-11 04:17] LABS: ABG Base Excess 0.2 MMOL/L (-2.5-2.5); ABG HCO3 24.6 MMOL/L (20-26); ABG Oxygen Saturation 98.2 % (95-100); ABG PCO2 32.9 MM HG (35-48); ABG PH 7.465 (7.35-7.45); ABG PO2 90.4 MM HG (80-95); ABG TCO2 22.2 MMOL/L (23-27); Allen Test Positive; Pt O2 Delivery Device Ventilator
[2017-07-11 04:46] LABS: Basophils % 0.2 % (0.0-0.8); Eosinophils # 0.1 10*3/uL (0.0-0.87); Eosinophils % 1.6 % (0.00-10.9); Hematocrit 22.3 VOL% (35.7-47.0); Hemoglobin 7.4 GM/DL (12.0-16.0); Immature Granulocytes % 2.6 %; Immature Granulocytes Absolute 0.16 #; Lymphocytes # 0.6 10*3/uL (1.4-4.0); Lymphocytes % 9.7 % (21.3-54.2); Mean Corpuscular HGB Conc 33.2 GM/DL (32-36); Mean Corpuscular Hemoglobin 30 PG (27-34); Mean Corpuscular Volume 89.2 FL (87-102); Mean Platelet Volume 13.9 FL (9.6-12.0); Monocytes # 0.2 10*3/uL (0.11-0.8); Monocytes % 3.1 % (1.7-12.7); Neutrophils # 5.1 10*3/uL (1.4-7.4); Neutrophils % 82.8 % (38.7-73.9); Red Cell Distribution Width 16.2 % (9.3-17.3); White Blood Count 6.1 T/CUMM (4-12)
[2017-07-11 04:54] LABS: Platelet Count 56 T/CUMM (130-400)
[2017-07-11 05:06] LABS: Calcium 7.4 MG/DL (8.5-10.1); Osmolality,Calculated 304.6 MOS/KG (273-304); Potassium 4.2 MMOL/L (3.5-5.1)
[2017-07-11] MEDS: MEROPENEM 1,000 MG in SODIUM CHLORIDE 0.9% 50 ML IV SCH ×3 (05:11→20:38)
[2017-07-11 05:29] LABS: Band Neutrophils 5 % (0-10); Giant Platelets Few; Hypochromasia 1+; Lymphocytes 10 % (20-55); Ovalocytes Slight; Platelet Estimate Decreased; Segmented Neutrophils 83 % (50-85); Total Cells Counted 100
[2017-07-11] MEDS: PROPOFOL 1,000 MG/100 ML BOTTLE IV SCH ×2 (05:35→16:30)
[2017-07-11 05:53] LABS: Magnesium 2.1 MG/DL (1.8-2.4); Phosphorous 2.4 MG/DL (2.5-4.9); Prealbumin 7.4 MG/DL (20-40)
[2017-07-11] MEDS: CALCITRIOL 0.25 MCG CAPSULE PO SCH (11:21)
[2017-07-11] MEDS: POTASSIUM PHOS/SOD PHOS POWDER 250 MG PACK PO SCH ×3 (11:21→20:38)
[2017-07-11 14:49] LABS: % Iron Saturation 17.9 % (18-50); Ferritin 1090.7 ng/ml (8-252)
[2017-07-11 14:55] LABS: Folate 14.9 NG/ML (5.4-24.0)
[2017-07-11] MEDS: DEXAMETHASONE 4 MG/1 ML VIAL IV SCH (15:47)
[2017-07-12] MEDS: INSULIN LISPRO 100 UNIT/ML SUBCUT SCH ×6 (00:51→21:09)
[2017-07-12] MEDS: DEXAMETHASONE 4 MG/1 ML VIAL IV SCH ×3 (00:52→15:56)
[2017-07-12] MEDS: ALBUMIN 25% 25 GM in PREMIX 1 EACH IV SCH ×3 (00:52→16:45)
[2017-07-12] MEDS: FAMOTIDINE 20 MG/2 ML VIAL IV SCH ×2 (03:24→15:55)
[2017-07-12 03:28] LABS: Allen Test Positive; Pt O2 Delivery Device Ventilator
[2017-07-12 03:29] LABS: ABG Base Excess 0.9 MMOL/L (-2.5-2.5); ABG HCO3 25.3 MMOL/L (20-26); ABG Oxygen Saturation 98.3 % (95-100); ABG PCO2 31.8 MM HG (35-48); ABG PH 7.487 (7.35-7.45); ABG TCO2 22.6 MMOL/L (23-27)
[2017-07-12] MEDS: MEROPENEM 1,000 MG in SODIUM CHLORIDE 0.9% 50 ML IV SCH ×3 (05:30→21:09)
[2017-07-12] MEDS: CALCITRIOL 0.25 MCG CAPSULE PO SCH (08:14)
[2017-07-12] MEDS: POTASSIUM PHOS/SOD PHOS POWDER 250 MG PACK PO SCH ×3 (08:15→21:09)
[2017-07-12 08:48] LABS: Osmolality,Calculated 309.6 MOS/KG (273-304); Potassium 4.5 MMOL/L (3.5-5.1)
[2017-07-12 08:53] LABS: Hematocrit 23.3 VOL% (35.7-47.0); Hemoglobin 7.7 GM/DL (12.0-16.0); Immature Granulocytes Absolute 0.14 #; Lymphocytes # 0.4 10*3/uL (1.4-4.0); Lymphocytes % 5.1 % (21.3-54.2); Mean Corpuscular Hemoglobin 30 PG (27-34); Mean Corpuscular Volume 90.3 FL (87-102); Monocytes # 0.1 10*3/uL (0.11-0.8); Monocytes % 1.4 % (1.7-12.7); Neutrophils # 6.4 10*3/uL (1.4-7.4); Neutrophils % 91.5 % (38.7-73.9); Platelet Count 88 T/CUMM (130-400); Red Blood Count 2.58 MC/CUMM (3.8-5.5); Red Cell Distribution Width 15.9 % (9.3-17.3)
[2017-07-12 09:13] LABS: Band Neutrophils 1 % (0-10); Lymphocytes 3 % (20-55); Platelet Estimate Decreased; Segmented Neutrophils 95 % (50-85); Total Cells Counted 100
[2017-07-12 09:14] LABS: Giant Platelets Few; Hypochromasia 1+
[2017-07-12] MEDS ORDERED: SODIUM CHLORIDE 0.9% 250 ML IV PRN (09:22)
[2017-07-12] MEDS: PROPOFOL 1,000 MG/100 ML BOTTLE IV SCH ×2 (12:34→21:52)
[2017-07-12 16:59] LABS: Hematocrit 30.3 VOL% (35.7-47.0)
[2017-07-12 17:00] LABS: Hemoglobin 10.1 GM/DL (12.0-16.0)
[2017-07-13] MEDS: ALBUMIN 25% 25 GM in PREMIX 1 EACH IV SCH ×2 (00:59→09:10)
[2017-07-13] MEDS: DEXAMETHASONE 4 MG/1 ML VIAL IV SCH ×3 (00:59→14:42)
[2017-07-13] MEDS: INSULIN LISPRO 100 UNIT/ML SUBCUT SCH ×6 (00:59→20:38)
[2017-07-13] MEDS: FAMOTIDINE 20 MG/2 ML VIAL IV SCH ×2 (04:01→14:42)
[2017-07-13 04:18] LABS: ABG Base Excess 1.2 MMOL/L (-2.5-2.5); ABG HCO3 23.7 MMOL/L (20-26); ABG PCO2 30.5 MM HG (35-48); ABG PH 7.509 (7.35-7.45); ABG PO2 70.9 MM HG (80-95); ABG TCO2 24.7 MMOL/L (23-27)
[2017-07-13 04:19] LABS: Allen Test Positive; Pt O2 Delivery Device Ventilator
[2017-07-13] MEDS: MEROPENEM 1,000 MG in SODIUM CHLORIDE 0.9% 50 ML IV SCH ×3 (06:00→20:38)
[2017-07-13 06:09] LABS: Hematocrit 29.8 VOL% (35.7-47.0); Hemoglobin 9.9 GM/DL (12.0-16.0); Immature Granulocytes % 1.6 %; Immature Granulocytes Absolute 0.11 #; Lymphocytes # 0.5 10*3/uL (1.4-4.0); Mean Corpuscular HGB Conc 33.2 GM/DL (32-36); Mean Corpuscular Hemoglobin 29 PG (27-34); Mean Corpuscular Volume 87.4 FL (87-102); Mean Platelet Volume 13.7 FL (9.6-12.0); Monocytes # 0.2 10*3/uL (0.11-0.8); Monocytes % 2.8 % (1.7-12.7); Neutrophils # 6.1 10*3/uL (1.4-7.4); Neutrophils % 88.6 % (38.7-73.9); Platelet Count 100 T/CUMM (130-400); Red Blood Count 3.41 MC/CUMM (3.8-5.5); Red Cell Distribution Width 15.9 % (9.3-17.3); White Blood Count 6.9 T/CUMM (4-12)
[2017-07-13 06:30] LABS: Hypochromasia 1+; Macrocytosis 1+; Polychromasia Slight
[2017-07-13 06:33] LABS: Calcium 8.5 MG/DL (8.5-10.1); Osmolality,Calculated 316.1 MOS/KG (273-304); Potassium 4.3 MMOL/L (3.5-5.1)
[2017-07-13] MEDS: PROPOFOL 1,000 MG/100 ML BOTTLE IV SCH ×2 (07:15→15:34)
[2017-07-13] MEDS: POTASSIUM PHOS/SOD PHOS POWDER 250 MG PACK PO SCH ×3 (09:06→20:38)
[2017-07-13] MEDS: CALCITRIOL 0.25 MCG CAPSULE PO SCH (09:06)
[2017-07-13 11:13] LABS: INR 1.2; PT Patient Result 12.9 SECS
[2017-07-13] MEDS: FUROSEMIDE 20 MG/2 ML VIAL IV SCH ×2 (11:17→20:37)
[2017-07-13] MEDS: SALIVA SUBSTITUTE SPRAY 60 ML CAN SWISH/SWAL PRN (15:58)
[2017-07-14] MEDS: INSULIN LISPRO 100 UNIT/ML SUBCUT SCH ×6 (00:32→20:57)
[2017-07-14] MEDS: DEXAMETHASONE 4 MG/1 ML VIAL IV SCH ×3 (00:32→16:45)
[2017-07-14] MEDS: FUROSEMIDE 20 MG/2 ML VIAL IV SCH ×3 (02:45→18:41)
[2017-07-14] MEDS: FAMOTIDINE 20 MG/2 ML VIAL IV SCH ×2 (02:45→16:47)
[2017-07-14] MEDS: MEROPENEM 1,000 MG in SODIUM CHLORIDE 0.9% 50 ML IV SCH ×3 (04:02→20:58)
[2017-07-14] MEDS: PROPOFOL 1,000 MG/100 ML BOTTLE IV SCH ×2 (04:03→16:43)
[2017-07-14 04:29] LABS: ABG Base Excess 2.1 MMOL/L (-2.5-2.5); ABG HCO3 26.2 MMOL/L (20-26); ABG Oxygen Saturation 97.4 % (95-100); ABG PCO2 35.2 MM HG (35-48); ABG PH 7.468 (7.35-7.45); ABG PO2 86.2 MM HG (80-95); ABG TCO2 22.8 MMOL/L (23-27); Allen Test Positive; Pt O2 Delivery Device Ventilator
[2017-07-14 04:45] LABS: Basophils % 0.1 % (0.0-0.8); Hematocrit 32.3 VOL% (35.7-47.0); Hemoglobin 10.7 GM/DL (12.0-16.0); Immature Granulocytes % 1.2 %; Immature Granulocytes Absolute 0.12 #; Lymphocytes # 0.7 10*3/uL (1.4-4.0); Lymphocytes % 6.9 % (21.3-54.2); Mean Corpuscular HGB Conc 33.1 GM/DL (32-36); Mean Corpuscular Hemoglobin 29 PG (27-34); Mean Corpuscular Volume 87.3 FL (87-102); Mean Platelet Volume 13.7 FL (9.6-12.0); Monocytes # 0.3 10*3/uL (0.11-0.8); Monocytes % 3.4 % (1.7-12.7); Neutrophils # 8.7 10*3/uL (1.4-7.4); Neutrophils % 88.4 % (38.7-73.9); Platelet Count 120 T/CUMM (130-400); Red Cell Distribution Width 15.6 % (9.3-17.3); White Blood Count 9.8 T/CUMM (4-12)
[2017-07-14 05:02] LABS: INR 1.2
[2017-07-14 05:16] LABS: Band Neutrophils 1 % (0-10); Hypochromasia Slight; Lymphocytes 7 % (20-55); Platelet Estimate Decreased; Segmented Neutrophils 89 % (50-85); Total Cells Counted 100
[2017-07-14 05:33] LABS: Phosphorous 4.3 MG/DL (2.5-4.9); Prealbumin 13.5 MG/DL (20-40)
[2017-07-14 05:36] LABS: Calcium 8.3 MG/DL (8.5-10.1); Magnesium 2.2 MG/DL (1.8-2.4); Osmolality,Calculated 321.3 MOS/KG (273-304); Potassium 4.1 MMOL/L (3.5-5.1)
[2017-07-14] MEDS: POTASSIUM PHOS/SOD PHOS POWDER 250 MG PACK PO SCH ×3 (09:37→21:01)
[2017-07-14] MEDS: CALCITRIOL 0.25 MCG CAPSULE PO SCH (09:37)
[2017-07-14] MEDS: SALIVA SUBSTITUTE SPRAY 60 ML CAN SWISH/SWAL PRN (21:04)
[2017-07-15] MEDS: DEXAMETHASONE 4 MG/1 ML VIAL IV SCH ×4 (00:02→22:44)
[2017-07-15] MEDS: INSULIN LISPRO 100 UNIT/ML SUBCUT SCH ×6 (00:04→20:58)
[2017-07-15 03:25] LABS: ABG Base Excess 5.5 MMOL/L (-2.5-2.5); ABG HCO3 29.3 MMOL/L (20-26); ABG Oxygen Saturation 98.2 % (95-100); ABG PH 7.483 (7.35-7.45); ABG PO2 99.6 MM HG (80-95); ABG TCO2 25.7 MMOL/L (23-27); Allen Test Positive; Pt O2 Delivery Device Ventilator
[2017-07-15] MEDS: FAMOTIDINE 20 MG/2 ML VIAL IV SCH ×2 (04:13→15:26)
[2017-07-15] MEDS: FUROSEMIDE 20 MG/2 ML VIAL IV SCH ×3 (04:15→22:39)
[2017-07-15 05:04] LABS: Magnesium 2.4 MG/DL (1.8-2.4); Osmolality,Calculated 309.6 MOS/KG (273-304); Potassium 4.3 MMOL/L (3.5-5.1)
[2017-07-15 05:23] LABS: INR 1.2; PT Patient Result 12.7 SECS
[2017-07-15 05:36] LABS: Basophils % 0.1 % (0.0-0.8); Hematocrit 35.5 VOL% (35.7-47.0); Hemoglobin 11.7 GM/DL (12.0-16.0); Immature Granulocytes % 1.3 %; Immature Granulocytes Absolute 0.14 #; Lymphocytes # 0.7 10*3/uL (1.4-4.0); Lymphocytes % 6.4 % (21.3-54.2); Mean Corpuscular Hemoglobin 29 PG (27-34); Mean Corpuscular Volume 87.4 FL (87-102); Mean Platelet Volume 13.9 FL (9.6-12.0); Monocytes # 0.3 10*3/uL (0.11-0.8); Monocytes % 2.5 % (1.7-12.7); Neutrophils # 9.9 10*3/uL (1.4-7.4); Neutrophils % 89.7 % (38.7-73.9); Platelet Count 152 T/CUMM (130-400); Red Blood Count 4.06 MC/CUMM (3.8-5.5); Red Cell Distribution Width 14.9 % (9.3-17.3)
[2017-07-15 06:18] LABS: Hypochromasia 1+; Macrocytosis 1+; Polychromasia Slight
[2017-07-15] MEDS: MEROPENEM 1,000 MG in SODIUM CHLORIDE 0.9% 50 ML IV SCH ×3 (06:28→20:58)
[2017-07-15] MEDS: PROPOFOL 1,000 MG/100 ML BOTTLE IV SCH (09:34)
[2017-07-15] MEDS: FLUCONAZOLE INJ 100 MG in IV BAG 1 EACH IV SCH (12:34)
[2017-07-15] MEDS ORDERED: LIDOCAINE 1%/EPI INJ 20 ML VIAL ONE (14:09)
[2017-07-15] MEDS ORDERED: MIDAZOLAM 2 MG/2 ML VIAL ONE (15:03)
[2017-07-15] MEDS ORDERED: SEVOFLURANE 1 UNIT/15 MINUTE INH ONE (15:03)
[2017-07-15] MEDS ORDERED: ROCURONIUM 100 MG/10 ML VIAL IV ONE (15:03)
[2017-07-15] MEDS ORDERED: PROPOFOL 200 MG/20 ML VIAL IV ONE (15:03)
[2017-07-15] MEDS: CALCITRIOL 0.25 MCG CAPSULE PO SCH (15:23)
[2017-07-15] MEDS: POTASSIUM PHOS/SOD PHOS POWDER 250 MG PACK PO SCH ×3 (15:26→20:59)
[2017-07-15] MEDS: SALIVA SUBSTITUTE SPRAY 60 ML CAN SWISH/SWAL PRN (17:26)
[2017-07-15] MEDS ORDERED: MORPHINE 2 MG/1 ML SYRINGE IV PRN (18:00)
[2017-07-16] MEDS: INSULIN LISPRO 100 UNIT/ML SUBCUT SCH ×7 (00:27→23:32)
[2017-07-16] MEDS: FAMOTIDINE 20 MG/2 ML VIAL IV SCH ×2 (02:25→14:10)
[2017-07-16 03:10] LABS: ABG Base Excess 5.6 MMOL/L (-2.5-2.5); ABG HCO3 28.8 MMOL/L (20-26); ABG Oxygen Saturation 97.7 % (95-100); ABG PH 7.509 (7.35-7.45); ABG PO2 105.7 MM HG (80-95); ABG TCO2 29.9 MMOL/L (23-27); Allen Test Positive; Pt O2 Delivery Device Ventilator
[2017-07-16] MEDS: MEROPENEM 1,000 MG in SODIUM CHLORIDE 0.9% 50 ML IV SCH ×3 (04:44→20:30)
[2017-07-16] MEDS: DEXAMETHASONE 4 MG/1 ML VIAL IV SCH ×3 (06:36→23:10)
[2017-07-16] MEDS: CALCITRIOL 0.25 MCG CAPSULE PO SCH (09:05)
[2017-07-16] MEDS: POTASSIUM PHOS/SOD PHOS POWDER 250 MG PACK PO SCH ×3 (09:05→20:29)
[2017-07-16] MEDS: FUROSEMIDE 20 MG/2 ML VIAL IV SCH ×2 (11:19→23:14)
[2017-07-16] MEDS: FLUCONAZOLE INJ 100 MG in IV BAG 1 EACH IV SCH (11:26)
[2017-07-16] MEDS: PROPOFOL 1,000 MG/100 ML BOTTLE IV SCH (14:17)
[2017-07-16] MEDS: SALIVA SUBSTITUTE SPRAY 60 ML CAN SWISH/SWAL PRN (17:17)
[2017-07-17] MEDS: FAMOTIDINE 20 MG/2 ML VIAL IV SCH ×2 (03:09→14:30)
[2017-07-17] MEDS: INSULIN LISPRO 100 UNIT/ML SUBCUT SCH ×5 (03:43→20:00)
[2017-07-17 04:47] LABS: Basophils % 0.1 % (0.0-0.8); Hematocrit 36.8 VOL% (35.7-47.0); Immature Granulocytes % 1.4 %; Immature Granulocytes Absolute 0.19 #; Lymphocytes # 0.6 10*3/uL (1.4-4.0); Lymphocytes % 4.5 % (21.3-54.2); Mean Corpuscular HGB Conc 32.6 GM/DL (32-36); Mean Corpuscular Hemoglobin 29 PG (27-34); Mean Corpuscular Volume 88.2 FL (87-102); Mean Platelet Volume 12.9 FL (9.6-12.0); Monocytes # 0.4 10*3/uL (0.11-0.8); Monocytes % 2.9 % (1.7-12.7); Neutrophils % 91.1 % (38.7-73.9); Platelet Count 208 T/CUMM (130-400); Red Blood Count 4.17 MC/CUMM (3.8-5.5); Red Cell Distribution Width 14.7 % (9.3-17.3); White Blood Count 13.2 T/CUMM (4-12)
[2017-07-17 04:48] LABS: ABG Base Excess 7.8 MMOL/L (-2.5-2.5); ABG HCO3 31.5 MMOL/L (20-26); ABG Oxygen Saturation 97.3 % (95-100); ABG PH 7.489 (7.35-7.45); ABG PO2 89.3 MM HG (80-95); ABG TCO2 28.2 MMOL/L (23-27); Allen Test Positive; Pt O2 Delivery Device Ventilator
[2017-07-17 05:08] LABS: Calcium 8.1 MG/DL (8.5-10.1); Osmolality,Calculated 306.8 MOS/KG (273-304); Potassium 4.4 MMOL/L (3.5-5.1)
[2017-07-17 05:39] LABS: Lymphocytes 6 % (20-55); Segmented Neutrophils 93 % (50-85)
[2017-07-17 05:40] LABS: Platelet Estimate Normal; Total Cells Counted 100
[2017-07-17] MEDS: MEROPENEM 1,000 MG in SODIUM CHLORIDE 0.9% 50 ML IV SCH ×3 (05:46→20:02)
[2017-07-17] MEDS: DEXAMETHASONE 4 MG/1 ML VIAL IV SCH ×3 (06:04→22:19)
[2017-07-17] MEDS: CALCITRIOL 0.25 MCG CAPSULE PO SCH (08:04)
[2017-07-17] MEDS: POTASSIUM PHOS/SOD PHOS POWDER 250 MG PACK PO SCH ×3 (08:05→20:02)
[2017-07-17] MEDS: PROPOFOL 1,000 MG/100 ML BOTTLE IV SCH (09:46)
[2017-07-17] MEDS: FUROSEMIDE 20 MG/2 ML VIAL IV SCH ×2 (10:07→22:15)
[2017-07-17] MEDS: FLUCONAZOLE INJ 100 MG in IV BAG 1 EACH IV SCH (11:32)
[2017-07-17] MEDS: SALIVA SUBSTITUTE SPRAY 60 ML CAN SWISH/SWAL PRN (16:35)
[2017-07-18] MEDS: INSULIN LISPRO 100 UNIT/ML SUBCUT SCH ×5 (00:44→15:54)
[2017-07-18] MEDS: FAMOTIDINE 20 MG/2 ML VIAL IV SCH ×2 (02:00→13:47)
[2017-07-18 04:19] LABS: ABG Base Excess 8.7 MMOL/L (-2.5-2.5); ABG HCO3 32.5 MMOL/L (20-26); ABG Oxygen Saturation 98.6 % (95-100); ABG PCO2 44.4 MM HG (35-48); ABG PH 7.484 (7.35-7.45); ABG TCO2 29.4 MMOL/L (23-27); Allen Test Positive; Pt O2 Delivery Device Ventilator
[2017-07-18] MEDS: MEROPENEM 1,000 MG in SODIUM CHLORIDE 0.9% 50 ML IV SCH ×2 (04:59→12:43)
[2017-07-18 05:00] LABS: Basophils % 0.1 % (0.0-0.8); Hematocrit 36.7 VOL% (35.7-47.0); Immature Granulocytes % 1.6 %; Immature Granulocytes Absolute 0.22 #; Lymphocytes # 0.6 10*3/uL (1.4-4.0); Lymphocytes % 4.1 % (21.3-54.2); Mean Corpuscular HGB Conc 32.7 GM/DL (32-36); Mean Corpuscular Hemoglobin 29 PG (27-34); Mean Corpuscular Volume 88.4 FL (87-102); Mean Platelet Volume 12.6 FL (9.6-12.0); Monocytes # 0.5 10*3/uL (0.11-0.8); Monocytes % 3.3 % (1.7-12.7); Neutrophils # 12.2 10*3/uL (1.4-7.4); Neutrophils % 90.9 % (38.7-73.9); Platelet Count 229 T/CUMM (130-400); Red Blood Count 4.15 MC/CUMM (3.8-5.5); Red Cell Distribution Width 14.7 % (9.3-17.3); White Blood Count 13.4 T/CUMM (4-12)
[2017-07-18 05:19] LABS: INR 1.1; PT Patient Result 11.9 SECS; Partial Thromboplastin Time 21.6 SECS (0-40)
[2017-07-18 05:33] LABS: Magnesium 2.6 MG/DL (1.8-2.4); Phosphorous 3.6 MG/DL (2.5-4.9); Prealbumin 27.2 MG/DL (20-40)
[2017-07-18 05:34] LABS: Band Neutrophils 3 % (0-10); Eosinophils 1 % (0-10); Lymphocytes 5 % (20-55); Metamyelocytes 2 %; Platelet Estimate Normal; Promyelocytes 1 %; Segmented Neutrophils 84 % (50-85); Total Cells Counted 100
[2017-07-18] MEDS: DEXAMETHASONE 4 MG/1 ML VIAL IV SCH ×2 (06:39→15:25)
[2017-07-18] MEDS: CALCITRIOL 0.25 MCG CAPSULE PO SCH (09:09)
[2017-07-18] MEDS: POTASSIUM PHOS/SOD PHOS POWDER 250 MG PACK PO SCH ×2 (09:10→15:25)
[2017-07-18] MEDS: PROPOFOL 1,000 MG/100 ML BOTTLE IV SCH (09:21)
[2017-07-18] MEDS: FUROSEMIDE 20 MG/2 ML VIAL IV SCH (09:37)
[2017-07-18] MEDS: FLUCONAZOLE INJ 100 MG in IV BAG 1 EACH IV SCH (11:44)
[2017-07-18] MEDS ORDERED: INFLUENZA VIRUS VACCINE 0.5 ML SYRINGE IM ONE (14:17)
[2017-07-18 15:09] VITALS: BP 118/47
== END 2017-07-18 15:54 | DRG 4 ==
LOC: EDUNIT# → N.ED 13:43 → N.EDINP 14:39 → SUATTDRO 14:39 → N.ICU 15:25
PROVIDERS: ADMIT Hospitalist; ATTEND Internal Medicine